=== PATIENT | female | born 1995 ===

== ENCOUNTER 2025-06-17 12:30 | Outpatient (CLI) | payer OTHER | END 2025-06-17 12:32 | disposition home or self-care (01) | LOC: PRENATAL 12:30 | PROVIDERS: ATTEND Obstetrics & Gynecology Maternal & Fetal Medicine | DX: O36.80X0 Pregnancy with inconclusive fetal viability, not applicable or unspecified (principal); O36.1999 Maternal care for other isoimmunization, unspecified trimester, other fetus; Z14.8 Genetic carrier of other disease; Z36.82 Encounter for antenatal screening for nuchal translucency; Z3A.12 12 weeks gestation of pregnancy ==

== ENCOUNTER → 2025-08-12 07:14 | Outpatient (CLI) | payer OTHER | END | disposition home or self-care (01) | LOC: PRENATAL 07:14 | PROVIDERS: ATTEND Obstetrics & Gynecology Maternal & Fetal Medicine | DX: O44.02 Complete placenta previa NOS or without hemorrhage, second trimester (principal); O36.1920 Maternal care for other isoimmunization, second trimester, not applicable or unspecified; Z3A.20 20 weeks gestation of pregnancy ==